=== PATIENT | female | born 1970 | race African-American/Black ===

== ENCOUNTER → 2017-07-03 | Outpatient (CLI) | payer OTHER ==
[~2017-07-03] MED LIST: ACETAMINOPHEN-1 EAC1 PO; IBUPROFEN 600600 M1 PO; IRON325 PO; NORCO 5-325 TA1 EACH PO; PENICILLIN V P500 MG PO; PERCOCET 5-3251 EACH PO; PREDNISONE 20 M20 M1 PO; PREDNISONE50 MG PO; VALACYCLOVIR1000 MG PO; VALIUM5 MG PO
== END ==
LOC: ULTRA 16:34
DX: M79.662 Pain in left lower leg (principal); M79.89 Other specified soft tissue disorders

== ENCOUNTER → 2018-08-05 | Outpatient (CLI) | payer OTHER | LOC: RAD 16:47 | DX: M25.552 Pain in left hip (principal); M79.605 Pain in left leg ==

== ENCOUNTER → 2018-08-07 | Outpatient (CLI) | payer OTHER | LOC: ULTRA 08-06 16:54 | DX: M79.605 Pain in left leg (principal); M25.552 Pain in left hip ==